=== PATIENT | male | born 1970 ===

== ENCOUNTER 2022-06-04 12:04 | Inpatient (IN) | payer MEDICAID, OTHER ==
[~2022-06-04] VITALS: Ht 175.3 cm; Wt 97.0 kg
[2022-06-04] MEDS ORDERED: TERB250T89 PO (12:55)
[2022-06-04] MEDS ORDERED: LOSA-382 PO (12:55)
[2022-06-04] MEDS ORDERED: SPIR-37 PO (12:55)
[2022-06-04] MEDS ORDERED: FURO-151 PO (12:55)
[2022-06-04] MEDS ORDERED: NIFE-46 PO (12:55)
[2022-06-04] MEDS ORDERED: MULT400T15 PO (12:55)
[2022-06-04] MEDS ORDERED: CHOL500045 PO (13:15)
[2022-06-04] MEDS ORDERED: INSU100I26 SQ (13:15)
[2022-06-04] MEDS ORDERED: DULA1.5P SQ (13:15)
[2022-06-04] MEDS ORDERED: ATOR40TA71 PO (13:15)
[2022-06-04] MEDS ORDERED: SODI10PO2 PO (13:15)
[2022-06-04 14:35] LABS: BASOPHILS % (AUTO) 0.6 % (0.0-2.0); EOSINOPHILS % (AUTO) 1.4 % (1.0-6.0); HEMOGLOBIN 10.8 g/dL (13.5-17.5); LYMPHOCYTES # (AUTO) 1.5 K/uL (1.0-4.8); LYMPHOCYTES % (AUTO) 24.2 % (22.0-44.0); MEAN CORPUSCULAR HEMOGLOBIN 30.8 pg (26.0-34.0); MEAN CORPUSCULAR HGB CONC 33.7 G/dL (31.0-37.0); MEAN CORPUSCULAR VOLUME 91 fL (80-100); MONOCYTES # (AUTO) 0.4 K/uL (0.1-1.0); NEUTROPHILS # (AUTO) 4.2 K/uL (1.8-7.7); NEUTROPHILS % (AUTO) 66.8 % (40.0-70.0); PLATELET COUNT (AUTO) 317 K/uL (150-450); RED BLOOD CELL COUNT(AUTO) 3.49 MIL/uL (4.50-5.90); RED CELL DISTRIBUTION WIDTH 15.2 % (11.5-14.5)
[2022-06-04 14:42] LABS: ANION GAP 10 mmol/L (8-16); CALCIUM, TOTAL 8.7 mg/dL (8.8-10.5); CARBON DIOXIDE 24 mmol/L (22-29); CHLORIDE 107 mmol/L (98-107); CREATININE 4.31 mg/dL (0.60-1.30); GLOMERULAR FILTR. RATE CALC 15 mL/min (>60); GLUCOSE,RANDOM 240 mg/dL (70-110); POTASSIUM 4.1 mmol/L (3.5-5.1); SODIUM SERUM 141 mmol/L (136-145); UREA NITROGEN, BLOOD 36 mg/dL (7-18)
[2022-06-04 14:47] LABS: ALANINE AMINOTRANSFERASE 31 U/L (12-78); ALBUMIN 1.8 g/dL (3.4-5.0); ALKALINE PHOSPHATASE 90 U/L (46-116); ASPARTATE AMINOTRANSFERASE 47 U/L (15-37); BILIRUBIN,TOTAL 0.1 mg/dL (0.1-1.0); TOTAL PROTEIN, SERUM 5.4 g/dL (6.4-8.2)
[2022-06-04] MEDS ORDERED: LORazepam 2 MG TABLET PO ONE (16:45)
[2022-06-04] MEDS ORDERED: LORazepam 2 MG TABLET PO PRN (17:00)
[2022-06-04] MEDS ORDERED: ZOLPIDEM TARTRATE 10 MG TABLET PO PRN (17:00)
[2022-06-04] MEDS ORDERED: HALOPERIDOL 5 MG TABLET PO PRN (17:00)
[2022-06-04 17:02] LABS: COVID AG,FIA SOURCE NASOPHARYNGEAL
[2022-06-04 17:08] LABS: THYROID STIMULATING HORMONE 3.58 uIU/mL (0.36-3.74)
[2022-06-04] MEDS ORDERED: ALBUTEROL SULFATE HFA 90 MCG/PUFF 8 GM INHALER IH PRN (21:15)
[2022-06-04] MEDS ORDERED: ONDANSETRON HCL 4 MG TABLET PO PRN (21:15)
[2022-06-04] MEDS ORDERED: ACETAMINOPHEN 325 MG TABLET PO PRN (21:15)
[2022-06-04] MEDS ORDERED: CloNIDine HCL 0.1 MG TABLET PO PRN (21:15)
[2022-06-04] MEDS ORDERED: NICOTINE 14 MG/24 HOUR PATCH TD PRN (21:15)
[2022-06-04] MEDS ORDERED: DOCUSATE SODIUM 100 MG CAPSULE PO PRN (21:15)
[2022-06-04] MEDS ORDERED: DEXTROSE 50%-WATER 25 GM/50 ML SYRINGE IVP PRN (21:15)
[2022-06-04] MEDS ORDERED: MAGNESIUM HYDROXIDE SUSPENSION 30 ML UDCUP PO PRN (21:15)
[2022-06-04] MEDS ORDERED: MAG HYDROX/AL HYDROX/SIMETH ES 30 ML SUSPENSION UDCUP PO PRN (21:15)
[2022-06-04] MEDS ORDERED: LOPERAMIDE HCL 2 MG CAPSULE PO PRN (21:15)
[2022-06-04] MEDS ORDERED: GuaiFENesin/D-METHORPHAN [SUGAR-FREE] 200-20MG/10 ML SYRUP UDCUP PO PRN (21:15)
[2022-06-04] MEDS ORDERED: PETROLATUM,WHITE 28 GM JELLY TP PRN (21:15)
[2022-06-04] MEDS ORDERED: INFLUENZA VIRUS VACCINE QVS 2022-23 (6MO+)/PF 60 MCG/0.5 ML SYRINGE IM. ONE (22:30)
[2022-06-04 22:43] VITALS: BP 171/116
[2022-06-04] MEDS ORDERED: PNEUMOCOCCAL VACCINE POLYVALENT 0.5 ML VIAL [PPSV23] IM. ONE (22:45)
[2022-06-05 00:40] VITALS: BP 169/99
[2022-06-05 05:36] LABS: GLUCOMETER DEV NAME(LOC) 3E.I 2; GLUCOSE,POINT OF CARE 178 MG/DL (70-110)
[2022-06-05 05:51] LABS: BASOPHILS % (AUTO) 0.4 % (0.0-2.0); HEMATOCRIT 25.4 % (41-53); HEMOGLOBIN 8.9 g/dL (13.5-17.5); LYMPHOCYTES # (AUTO) 2.2 K/uL (1.0-4.8); LYMPHOCYTES % (AUTO) 28.7 % (22.0-44.0); MEAN CORPUSCULAR HGB CONC 34.9 G/dL (31.0-37.0); MEAN CORPUSCULAR VOLUME 89 fL (80-100); MONOCYTES # (AUTO) 0.5 K/uL (0.1-1.0); MONOCYTES % (AUTO) 5.9 % (2.0-9.0); NEUTROPHILS # (AUTO) 4.9 K/uL (1.8-7.7); PLATELET COUNT (AUTO) 270 K/uL (150-450); RED BLOOD CELL COUNT(AUTO) 2.86 MIL/uL (4.50-5.90); RED CELL DISTRIBUTION WIDTH 15.5 % (11.5-14.5)
[2022-06-05] MEDS: INSULIN LISPRO 100 UNITS/ML SQ PRN ×3 (07:02→21:06)
[2022-06-05] MEDS ORDERED: LOSARTAN POTASSIUM 50 MG TABLET PO SCH (09:00)
[2022-06-05] MEDS ORDERED: FUROSEMIDE 40 MG TABLET PO SCH (09:00)
[2022-06-05 09:25] VITALS: BP 152/88
[2022-06-05] MEDS: SPIRONOLACTONE 25 MG TABLET PO SCH (10:17)
[2022-06-05] MEDS: AmLODIPine BESYLATE 10 MG TABLET PO SCH (10:17)
[2022-06-05] MEDS: ATORVASTATIN CALCIUM 40 MG TABLET PO SCH (10:17)
[2022-06-05] MEDS: CHOLECALCIFEROL (VIT D3) 5,000 [125 MCG] UNITS CAPSULE PO SCH (10:18)
[2022-06-05] MEDS: NIFEdipine 60 MG ER TABLET PO SCH (10:18)
[2022-06-05] MEDS: SERTRALINE HCL 50 MG TABLET PO SCH (10:58)
[2022-06-05] MEDS: LEVOFLOXACIN 750 MG TABLET PO SCH (11:20)
[2022-06-05 14:16] LABS: GLUCOMETER DEV NAME(LOC) 3E.I 2; GLUCOSE,POINT OF CARE 188 MG/DL (70-110)
[2022-06-05 16:03] VITALS: BP 125/63
[2022-06-05 17:26] LABS: GLUCOMETER DEV NAME(LOC) 3E.I 2; GLUCOSE,POINT OF CARE 127 MG/DL (70-110)
[2022-06-05 20:16] LABS: GLUCOMETER DEV NAME(LOC) 3E.I 2; GLUCOSE,POINT OF CARE 182 MG/DL (70-110)
[2022-06-05] MEDS ORDERED: SODIUM ZIRCONIUM CYCLOSILICATE 5 GM POWDER PACKET PO SCH (21:00)
[2022-06-06 05:37] LABS: GLUCOMETER DEV NAME(LOC) 3E.I 2; GLUCOSE,POINT OF CARE 162 MG/DL (70-110)
[2022-06-06] MEDS: INSULIN LISPRO 100 UNITS/ML SQ PRN ×3 (07:05→21:25)
[2022-06-06 07:38] LABS: CREATININE 3.99 mg/dL (0.60-1.30); POTASSIUM 3.6 mmol/L (3.5-5.1)
[2022-06-06 08:00] VITALS: BP 99/61
[2022-06-06 09:47] VITALS: BP 127/70
[2022-06-06] MEDS: NIFEdipine 60 MG ER TABLET PO SCH (09:47)
[2022-06-06] MEDS: SERTRALINE HCL 50 MG TABLET PO SCH (09:47)
[2022-06-06] MEDS: ATORVASTATIN CALCIUM 40 MG TABLET PO SCH (09:47)
[2022-06-06] MEDS: LEVOFLOXACIN 750 MG TABLET PO SCH (09:47)
[2022-06-06] MEDS: AmLODIPine BESYLATE 10 MG TABLET PO SCH (09:47)
[2022-06-06] MEDS: CHOLECALCIFEROL (VIT D3) 5,000 [125 MCG] UNITS CAPSULE PO SCH (09:47)
[2022-06-06] MEDS: SPIRONOLACTONE 25 MG TABLET PO SCH (09:47)
[2022-06-06 14:41] LABS: GLUCOMETER DEV NAME(LOC) 3E.I 2; GLUCOSE,POINT OF CARE 222 MG/DL (70-110)
[2022-06-06 16:05] VITALS: BP 117/62
[2022-06-06 17:50] LABS: GLUCOMETER DEV NAME(LOC) 3E.I 2; GLUCOSE,POINT OF CARE 124 MG/DL (70-110)
[2022-06-06 23:41] LABS: GLUCOMETER DEV NAME(LOC) 3E.I 2; GLUCOSE,POINT OF CARE 146 MG/DL (70-110)
[2022-06-07 06:21] LABS: GLUCOMETER DEV NAME(LOC) 3E.C; GLUCOSE,POINT OF CARE 122 MG/DL (70-110)
[2022-06-07] MEDS: INSULIN LISPRO 100 UNITS/ML SQ PRN ×3 (07:00→18:04)
[2022-06-07] MEDS: NIFEdipine 60 MG ER TABLET PO SCH (09:00)
[2022-06-07] MEDS: AmLODIPine BESYLATE 10 MG TABLET PO SCH (09:00)
[2022-06-07] MEDS: ATORVASTATIN CALCIUM 40 MG TABLET PO SCH (09:07)
[2022-06-07] MEDS: SPIRONOLACTONE 25 MG TABLET PO SCH (09:07)
[2022-06-07] MEDS: SERTRALINE HCL 50 MG TABLET PO SCH (09:07)
[2022-06-07] MEDS: CHOLECALCIFEROL (VIT D3) 5,000 [125 MCG] UNITS CAPSULE PO SCH (09:08)
[2022-06-07] MEDS: LEVOFLOXACIN 750 MG TABLET PO SCH (09:08)
[2022-06-07 09:23] VITALS: BP 107/60
[2022-06-07 11:52] LABS: GLUCOMETER DEV NAME(LOC) 3E.I 2; GLUCOSE,POINT OF CARE 175 MG/DL (70-110)
[2022-06-07 16:18] VITALS: BP 151/87
[2022-06-07] MEDS ORDERED: AMLO-258 PO (16:22)
[2022-06-07] MEDS ORDERED: NIFE-129 PO (16:22)
[2022-06-07] MEDS ORDERED: CHOL500013 PO (16:22)
[2022-06-07] MEDS ORDERED: SERT-439 PO (16:22)
[2022-06-07] MEDS ORDERED: ATOR40TA71 PO (16:22)
[2022-06-07] MEDS ORDERED: SPIR-37 PO (16:22)
[2022-06-07] MEDS ORDERED: SODI5POW3 PO (16:22)
[2022-06-07] MEDS ORDERED: LEVO750T68 PO (16:56)
[2022-06-07 17:36] LABS: GLUCOMETER DEV NAME(LOC) 3E.I 2; GLUCOSE,POINT OF CARE 153 MG/DL (70-110)
== END 2022-06-07 18:55 | disposition home or self-care (01) | DRG 751 ==
LOC: EMS 12:07 → 3EI 17:52
PROVIDERS: ADMIT Psychiatry & Neurology Child & Adolescent Psychiatry; ATTEND Psychiatry & Neurology Child & Adolescent Psychiatry
DX: F33.2 Major depressive disorder, recurrent severe without psychotic features (principal); R45.851 Suicidal ideations; D63.8 Anemia in other chronic diseases classified elsewhere; E11.22 Type 2 diabetes mellitus with diabetic chronic kidney disease; E78.5 Hyperlipidemia, unspecified; F10.10 Alcohol abuse, uncomplicated; I12.9 Hypertensive chronic kidney disease with stage 1 through stage 4 chronic kidney disease, or unspecified chronic kidney disease; N18.9 Chronic kidney disease, unspecified; Z20.822 Contact with and (suspected) exposure to COVID-19; F41.9 Anxiety disorder, unspecified; K21.9 Gastro-esophageal reflux disease without esophagitis; Z79.899 Other long term (current) drug therapy; Z63.4 Disappearance and death of family member; Z88.8 Allergy status to other drugs, medicaments and biological substances
CPT/HCPCS: 70450; 80048; 80053; 82962; 84443; 85025; 93970; 99285; G0480; Q9967